=== PATIENT | female | born 1950 | race Caucasian/White ===

== ENCOUNTER 2019-08-17 10:03 | Outpatient (CLI) | payer MEDICARE, BC, SELFPAY ==
--- NOTE | ~2019-08-17 | XR_ITS ---
EXAMINATION: XR lumbar spine 2-3V DATE: 08/17/2019 10:27 INDICATION: Lumbar radiculopathy TECHNIQUE: Anteroposterior and lateral views of the lumbar spine, and cone-down lateral view of the l umbosacral junction were obtained. COMPARISON: 05/23/2017 FINDINGS: Bone alignment is normal. There is a chronic mild anterior compression fracture of L2. A tr ansitional S1 segment is again noted. There is severe loss of intervertebral disc space height throug hout the lumbar spine which is unchanged. Advanced facet osteoarthritis is noted in the lower lumbar spine. Small degenerative osteophytes project from the anterior endplates of multiple vertebral blaise s. There are 14 degrees of lumbar levoscoliosis. The bowel gas pattern is normal. Calcified atheroscl erosis is noted. IMPRESSION: 1. Severe lumbar spondylosis without acute findings or significant interval change. Reviewed, dictated and finalized at location A. IMPRESSION: 1. Severe lumbar spondylosis without acute findings or significant interval ivonne nge.
== END 2019-08-17 10:04 | disposition home or self-care (01) ==
PROVIDERS: PCP Internal Medicine; Visit Provider Pain Medicine Interventional Pain Medicine
DX: G89.4 Chronic pain syndrome (principal); M47.26 Other spondylosis with radiculopathy, lumbar region
CPT/HCPCS: 72100

== ENCOUNTER 2020-06-16 02:44 | Emergency (ER) | payer MEDICARE, BC, SELFPAY ==
--- NOTE | ~2020-06-16 | CT_ITS ---
EXAMINATION: CT abdomen pelvis wo con EXAM DATE: 06/16/2020 03:32 INDICATION: Left groin pain. TECHNIQUE: Spiral CT of the abdomen and pelvis was performed without contrast. Axial, coronal and s agittal images of the abdomen and pelvis were reviewed. The dose-length product (DLP) for this exami nation was 661.39 mGy-cm. The exposure was tailored according to patient size (auto mA exposure cont rol), and iterative reconstruction (ASIR) was used as additional dose reduction technique. There is no prior study for comparison. FINDINGS: The liver, spleen, adrenal glands and pancreas are unremarkable. Gallbladder is unremarkab le. No biliary obstruction. There is no nephrolithiasis or hydronephrosis. There is left-sided extr arenal pelvis. The uterus is not identified and has likely been surgically resected. The bladder is unremarkable. There is no retroperitoneal or pelvic lymphadenopathy. There is mild scattered kathy riosclerotic disease. The appendix is normal. There is mild sigmoid colonic diverticulosis. There is no adjacent inflamma tory change to suggest diverticulitis. The stomach and small bowel are unremarkable. No free intra peritoneal gas. The heart is normal in size. There are no pericardial or pleural effusions. The l roger bases are unremarkable. Lumbar spondylosis with moderate to severe disc disease L1-L5.. No osteo blastic disease. The inguinal canals are unremarkable. IMPRESSION: 1. No acute findings. 2. Mild sigmoid diverticulosis. Reviewed, dictated and finalized at location A.
--- NOTE | 2020-06-16 02:56 | PC.NURSE ---
Pt presents to ED with complaints of left leg and left groin pain. Pt denies fall and injury at time of pain onset. Pt states she was diagnosed with UTI last week and prescribed ABTs. Pt states pain is also in left lower back. Pt grimacing in pain and states that she is having spasms in left groin that is causing pain down left leg. Pt denies kidney stones and kidney infection, nausea, emesis and diarrhea. Pt was able to drive herself into ED as she lives alone. Pt resting on cart and is restless due to pain. Vitals stable and call button and personal items within reach.
[2020-06-16 02:57] VITALS: BP 177/96; PULSE 83; RESP 18; TEMP 36.8; O2SAT 100
[2020-06-16] MEDS: ONDANSETRON INJ 4 MG/2 ML VIAL IV PUSH (03:08)
[2020-06-16] MEDS: SODIUM CHLORIDE 0.9% IV 1,000 ML 999 ML IV CONT (03:08)
[2020-06-16] MEDS: HYDROmorphone HCL INJ (*CRX) 1 MG/ML SYR IV PUSH ×2 (03:09→03:43)
--- NOTE | 2020-06-16 03:15 | PC.NURSE ---
Pt assisted on and off of bedpan and was unable to urinate. Pt advised of the need for urine and was offered a straight cath. Pt ok with straight cath.
[2020-06-16 03:27] LABS: Basophils Percent Auto 0.3 % (0.2-1.2); Eosinophils Absolute Auto 0.1 K/mm3 (0-0.3); Eosinophils Percent Auto 1.1 % (0-4.4); Hematocrit 40.6 % (37.0-47.0); Hemoglobin 13.5 g/dL (12.0-15.0); Immature Granulocyte Absolute 0.03 K/mm3 (0.00-0.031); Immature Granulocyte Percent A 0.3 % (0-0.5); Lymphocytes Absolute Auto 1.62 K/mm3 (0.9-3.2); Lymphocytes Percent Auto 13.9 % (18.3-44.2); Mean Corpuscular HGB Conc 33.3 g/dl (32-36); Mean Corpuscular Hemoglobin 32.5 pg (26-34); Mean Corpuscular Volume 97.6 fl (80-100); Mean Platelet Volume 10.9 fl (7.4-10.4); Monocytes Absolute Auto 1.1 K/mm3 (0.1-0.6); Monocytes Percent Auto 9.1 % (2.6-8.5); Neutrophils Absolute Auto 8.8 K/mm3 (1.3-6.7); Neutrophils Percent Auto 75.3 % (45.5-73.1); Platelet Count Result 221 k/mm3 (150-375); Red Blood Count 4.16 M/mm3 (4.2-5.4); White Blood Count 11.6 K/mm3 (4.5-10.0)
--- NOTE | 2020-06-16 03:36 | PC.NURSE ---
Pt straight cath'd and tolerated procedure well. Specimen collected and sent to lab. Pt now resting on cart in its lowest position with call button and personal items within reach. cartographic technician presented to bedside to transport pt to CT.
[2020-06-16 03:38] LABS: Alanine Aminotransferase 17 U/L (4-35); Alkaline Phosphatase 78 U/L (38-126); Anion Gap 6 mmol/L (8-16); Aspartate Amino Transferase 26 U/L (14-36); Bilirubin,Total 0.4 mg/dL (0.2-1.3); Blood Urea Nitrogen 19 mg/dL (7-17); Calcium 9.1 mg/dL (8.4-10.2); Carbon Dioxide 29 mmol/L (22-30); Chloride 101 mmol/L (98-107); Estimated Glomerular Filt Rate > 60; Glucose 126 mg/dL (65-105); Lipase 102 U/L (23-300); Potassium 3.6 mmol/L (3.4-5.0); Sodium 136 mmol/L (137-145)
[2020-06-16 03:39] LABS: Lactic Acid Reflex 1.4 mmol/L (0.7-2.1)
--- NOTE | 2020-06-16 03:46 | PC.NURSE ---
Pt returned from radiology and is now resting on cart in its lowest position. Pt states pain has not subsided since administration of fentanyl. EDMD notified and states he will place orders for pain.
--- NOTE | 2020-06-16 04:08 | PC.NURSE ---
Pt continues to complain of no pain relief. EDMD notified and states will place order for more pain medication.
[2020-06-16] MEDS: KETOROLAC 30 MG/ML VIAL (*BKC) 15 MG IV PUSH (04:14)
[2020-06-16 04:22] LABS: Add Urine Microscopic? YES; Appearance Urine Cloudy (Clear); Bilirubin Urine Negative (Negative); Blood Urine Negative (Negative); Color Urine Yellow (Yellow); Glucose Urine UA Negative (Negative); Ketones Urine Negative (Negative); Leukocyte Esterase Ur Negative LEU/UL (Negative); Mucus Urine Rare /lpf; Nitrate Urine Negative (Negative); Protein Urine Negative (Negative); RBC Urine 0-2 /hpf (0-2); Specific Grav Ur 1.016 (1.001-1.035); Urobilinogen Urine Negative mg/dL (<2.0); WBC Urine 0-3 /hpf
--- NOTE | 2020-06-16 04:23 | ED.GENADULT ---
HPI - General Adult General Chief complaint: Extremity Injury, Lower Stated complaint: left hip/groin pain Time Seen by Provider: 06/16/20 02:52 History of Present Illness HPI narrative: Patient is a 69-year-old female presents to emergency department with chief complaint of the left inguinal pain. Patient reports that she has been treated for a urinary tract infection this week and started having severe pain in her left inguinal area patient states he is unable to get comfortable in any position reports that is not worse with palpation Related Data Home Medications Medication Instructions Recorded Confirmed calcium carbonate-vitamin D3 600 cap PO 08/31/19 mg calcium-200 unit capsule auaqmjtcevtx-thickyam-njply acid cap PO 08/31/19 400 mcg-vitamin K 80 mcg capsule nabumetone 750 mg tablet 750 mg PO BID 08/31/19 ramipril 10 mg capsule 10 mg PO DAILY 08/31/19 simvastatin 40 mg tablet 40 mg PO DAILY 08/31/19 Allergies Allergy/AdvReac Type Severity Reaction Status Date / Time Penicillins Allergy Unknown unknow Verified 08/31/19 13:29 Review of Systems Review of Systems: Narrative: A 10 system review of systems was completed on the patient and is negative except for what is stated in the HPI. Nursing and ancillary documentation was reviewed. [facility] Past Medical History Medical History (Updated 06/16/20 @ 05:07 by Rl Telles MD) Breast cancer History of vaginal delivery x 2 Surgical History Surgical History History of right mastectomy History of tubal ligation History of vaginal hysterectomy Social History Social History Smoking status: Never smoker Alcohol intake: current Exam Narrative: Exam Narrative: GENERAL: Well-appearing, well-nourished, and in no acute distress. HEAD: Normocephalic, atraumatic. EYES: PERRLA and EOMI. ENT: Nares clear, no rhinorrhea or epistaxis. Mucous membranes moist. NECK: Supple. CHEST: Clear to auscultation. No respiratory distress. HEART: Regular rate and rhythm. No murmur heard. Normal peripheral pulses. ABDOMEN: Soft, nontender, nondistended, normal active bowel sounds. EXTREMITIES: Normal range of motion. No edema. SKIN: Warm, dry, no rash. NEURO: No focal deficits. Alert and oriented x3. PSYCH: Normal mood and affect. Course Course Emergency Course: CT scan showed possible distal colitis versus artifact Vital Signs Vital signs: Vital Signs Temperature 36.8 C 06/16/20 02:57 Pulse Rate 83 06/16/20 02:57 Respiratory Rate 18 06/16/20 02:57 Blood Pressure 177/96 H 06/16/20 02:57 Pulse Oximetry 100 06/16/20 02:57 Temperature 36.8 C 06/16/20 02:57 Pulse Rate 106 H 06/16/20 04:33 Respiratory Rate 20 06/16/20 04:33 Blood Pressure 151/80 H 06/16/20 04:33 Pulse Oximetry 98 06/16/20 04:33 Medical Decision Making Vital Signs Vital Signs: Vital Signs Temperature 36.8 C 06/16/20 02:57 Pulse Rate 83 06/16/20 02:57 Respiratory Rate 18 06/16/20 02:57 Blood Pressure 177/96 H 06/16/20 02:57 Pulse Oximetry 100 06/16/20 02:57 Temperature 36.8 C 06/16/20 02:57 Pulse Rate 106 H 06/16/20 04:33 Respiratory Rate 20 06/16/20 04:33 Blood Pressure 151/80 H 06/16/20 04:33 Pulse Oximetry 98 06/16/20 04:33 Lab Data Result diagrams: 06/16/20 03:15 06/16/20 03:15 Labs: Lab Results 06/16/20 06/16/20 06/16/20 Range/Units 03:15 03:15 03:20 WBC 11.6 H (4.5-10.0) K/mm3 RBC 4.16 L (4.2-5.4) M/mm3 Hgb 13.5 (12.0-15.0) g/dL Hct 40.6 (37.0-47.0) % MCV 97.6 (80-100) fl MCH 32.5 (26-34) pg MCHC 33.3 (32-36) g/dl RDW 12.0 (11.5-14.5) % Plt Count 221 (150-375) k/mm3 MPV 10.9 H (7.4-10.4) fl Immature Gran % (Auto) 0.3 (0-0.5) % Neut % (Auto) 75.3 H (45.5-73.1) % Lymph % (Aut
--- NOTE | 2020-06-16 04:25 | PC.NURSE ---
Pt states pain has improved and is now rated 5/10 at this time. Pt states that groin spasms persists and orders muscle relaxer. Pt resting on cart. Vitals remains stable and pt resting on cart with call button and personal items within reach.
--- NOTE | 2020-06-16 04:28 | PC.NURSE ---
EDMD at bedside to update pt on poc. All questions and concerns addressed. Pt with call button and personal items within reach. Advised to press call button for assistance.
[2020-06-16 04:33] VITALS: BP 151/80; PULSE 106; RESP 20; O2SAT 98
[2020-06-16] MEDS: CYCLOBENZAPRINE HCL 10 MG TABLET PO (04:34)
--- NOTE | 2020-06-16 05:19 | PC.NURSE ---
Pt resting on cart and states that pain remains 5/10 and that spasms have decreased. EDMD notified. Pt resting on cart with stable vitals. No complaints or concerns voiced at this time. Advised to press call button for assistance.
[2020-06-16 05:27] VITALS: BP 153/84; PULSE 108; RESP 18; TEMP 36.9; O2SAT 100
== END 2020-06-16 05:29 | disposition home or self-care (01) ==
PROVIDERS: Emergency Provider Emergency Medicine; PCP Internal Medicine
DX: R10.32 Left lower quadrant pain (principal); M25.552 Pain in left hip; N39.0 Urinary tract infection, site not specified; Z85.3 Personal history of malignant neoplasm of breast; Z90.11 Acquired absence of right breast and nipple
CPT/HCPCS: 36415; 74176; 80053; 81001; 83605; 83690; 85025; 96361; 96374; 96375; 96376; 99284; A9270; J1170; J1885; J2405; J7030

== ENCOUNTER 2021-07-06 00:33 | Day surgery (SDC) | payer MEDICARE, BC, SELFPAY ==
[2021-06-29 09:50] VITALS: BMI 28.9
--- NOTE | 2021-07-05 14:23 | PM.HPGS ---
History of Present Illness History of Present Illness Consent: Risks, benefits, and alternatives have been discussed and questions answered. Patient agrees to proceed with procedure. Chief complaint: positive cologuard Narrative: Barbara Cosby is a 70 year old female referred for colon cancer screening. A Cologuard test that she recently performed was positive Review of Systems Review of Systems: All systems reviewed & are unremarkable except as noted in HPI and below PMFSH Past Medical History Medical History Arthritis Breast cancer Chronic pain syndrome High cholesterol History of vaginal delivery x 2 Hyperlipidemia Hypertension Surgical History Surgical History H/O foot surgery History of right mastectomy History of tubal ligation History of vaginal hysterectomy Family History Family History Mother Heart defect Social History Social History Smoking status: Never smoker Alcohol intake: current Drinks per week: 3 Substance use: never Substance use type: does not use Living arrangements: alone Additional living arrangements comments: brother lives next door Spiritual care concerns: No Meds Home Medications and Allergies Home Medications Medication Instructions Recorded Confirmed Type calcium carbonate 600 mg-vitamin 600 cap PO DAILY 08/31/19 07/06/21 History D3 5 mcg (200 unit) capsule tnyijwupktnr-cuwlmroo-rngnn acid 400 cap PO DAILY 08/31/19 07/06/21 History 400 mcg-vitamin K 80 mcg capsule ramipril 10 mg capsule 10 mg PO DAILY 08/31/19 07/06/21 History simvastatin 40 mg tablet 40 mg PO DAILY 08/31/19 07/06/21 History venlafaxine 75 mg capsule,extended 75 mg PO BID #180 cap 09/07/20 07/06/21 Rx release 24 hr hydrocodone-acetaminophen 5 - 325 mg PO PRN PRN 06/29/21 07/06/21 History methocarbamol 750 mg pe PO DAILY 06/29/21 07/06/21 History Allergies Allergy/AdvReac Type Severity Reaction Status Date / Time Penicillins Allergy Unknown unknow Verified 07/06/21 10:10 Exam Resp: Auscultation: clear to auscultation bilaterally Cardio: Rate: regular rate Rhythm: regular rhythm GI: GI Palp: Yes Soft to palpation and No Tenderness to palpation present (GI) Assessment and Plan Assessment and plan (1) Colon cancer screening: Code(s): Z12.11 - Encounter for screening for malignant neoplasm of colon Status: Acute Assessment and Plan: Colonoscopy with possible biopsy or polypectomy or cautery or injection of substances.
[2021-07-06 10:12] VITALS: BP 175/99; PULSE 90; RESP 18; TEMP 36.4; O2SAT 99
[2021-07-06] MEDS: LACTATED RINGERS 1,000 ML 150 ML IV CONT (10:24)
--- NOTE | 2021-07-06 10:35 | P.PNAN_ITS ---
Anes - Initial Pre Proc Eval Procedure: Operation Date: 07/06/21 11:15 Proposed Procedures p Colonoscopy - Flavio Alicia MD Date/Time: 07/06/21 10:35 Surgeon: Flavio Alicia MD Pre Op Diagnosis: positive cologuard Patient Data Age: 70 Gender: F Height: 1.55 m Weight: 67.7 kg Last Vital Signs Temp 36.4 C 07/06/21 10:12 Pulse 90 07/06/21 10:12 Resp 18 07/06/21 10:12 BP 175/99 H 07/06/21 10:12 Pulse Ox 99 07/06/21 10:12 Allergies Allergy/AdvReac Type Severity Reaction Status Date / Time Penicillins Allergy Unknown unknow Verified 07/06/21 10:10 Home Medications Medication Instructions Recorded Confirmed Type calcium carbonate 600 mg-vitamin 600 cap PO DAILY 08/31/19 07/06/21 History D3 5 mcg (200 unit) capsule nupwqpwizddv-zcpelyma-trlcd acid 400 cap PO DAILY 08/31/19 07/06/21 History 400 mcg-vitamin K 80 mcg capsule ramipril 10 mg capsule 10 mg PO DAILY 08/31/19 07/06/21 History simvastatin 40 mg tablet 40 mg PO DAILY 08/31/19 07/06/21 History venlafaxine 75 mg capsule,extended 75 mg PO BID #180 cap 09/07/20 07/06/21 Rx release 24 hr hydrocodone-acetaminophen 5 - 325 mg PO PRN PRN 06/29/21 07/06/21 History methocarbamol 750 mg pe PO DAILY 06/29/21 07/06/21 History Patient hx anesthesia problems: none Family hx anesthesia problems: none Results Review: All pre-operative results and documents have been reviewed as part of the pre-operative evaluation. [facility] Past Medical History Medical History Arthritis Breast cancer Chronic pain syndrome High cholesterol History of vaginal delivery x 2 Hyperlipidemia Hypertension Surgical History Surgical History H/O foot surgery History of right mastectomy History of tubal ligation History of vaginal hysterectomy Family History Family History Mother Heart defect Social History Social History Smoking status: Never smoker Alcohol intake: current Drinks per week: 3 Substance use: never Substance use type: does not use Living arrangements: alone Additional living arrangements comments: brother lives next door Spiritual care concerns: No Anes - Eval Final PreProcedure Day of Procedure 07/06/21 10:35 Patient weight: overweight Heart: regular rate and rhythm Lungs: clear to auscultation Airway: Mallampati scale class IV Neurological: alert and oriented Last oral intake: >/= 8 hours ASA classification: III Emergent: no Anesthetic plan: proceed Anesthesia type and monitoring: general GIVS and standard monitoring Results Review: All pre-operative results and documents have been reviewed as part of the pre-operative evaluation. Informed Consent: The patient's anesthetic plan and its attendant risks and benefits were discussed with the patient/family/POA. Questions were solicited a nd answers provided to the satisfaction of the patient/family/POA.
[2021-07-06 11:17] VITALS: BP 132/87; PULSE 74; RESP 22; O2SAT 94
[2021-07-06 11:27] VITALS: BP 162/103; PULSE 72; RESP 22; O2SAT 98
[2021-07-06 11:37] VITALS: BP 175/109; PULSE 72; RESP 17; O2SAT 98
== END 2021-07-06 11:47 | disposition home or self-care (01) ==
PROVIDERS: PCP Family Medicine; Visit Provider Internal Medicine Gastroenterology
PROC: 0DJD8ZZ Inspection of Lower Intestinal Tract, Via Natural or Artificial Opening Endoscopic (ICD-10-PCS; CPT 45378; principal; 2021-07-06 11:15)
DX: R19.5 Other fecal abnormalities (principal); K57.30 Diverticulosis of large intestine without perforation or abscess without bleeding; K64.8 Other hemorrhoids; I10 Essential (primary) hypertension; E78.5 Hyperlipidemia, unspecified; E78.00 Pure hypercholesterolemia, unspecified; M19.90 Unspecified osteoarthritis, unspecified site; G89.29 Other chronic pain; Z85.3 Personal history of malignant neoplasm of breast
CPT/HCPCS: 45378; J2704; J7120

== ENCOUNTER 2023-05-22 12:40 | Outpatient (CLI) | payer MEDICARE, BC, SELFPAY ==
--- NOTE | ~2023-05-22 | DEXA_ITS ---
Bone Density Report Name: SOULEYMANE GUADALUPE Age: 72 Sex: Female Ethnicity: White Date of : 1950 Indication: postmenopausal; screening for osteoporosis; cancer; hysterectomy; rheumatoid arthritis; Referring Provider: CASTILLO, GUSTAVO Johnston Study: Bone densitometry was performed. Exam Date: May 22, 2023 Accession number: [id number] Bone Density: Region BMD T-score Z-score Classification AP Spine(L2, L3, L4) 0.978 -0.9 1.4 Normal Femoral Neck (Left) 0.596 -2.3 -0.4 Osteopenia Total Hip (Left) 0.692 -2.1 -0.5 Osteopenia Femoral Neck (Right) 0.609 -2.2 -0.3 Osteopenia Total Hip (Right) 0.662 -2.3 -0.7 Osteopenia Femoral Neck Mean 0.602 -2.2 -0.3 Osteopenia Total Hip Mean 0.677 -2.2 -0.6 Osteopenia World Health Organization criteria for BMD impression classify patients as: Normal (T-score at or above -1.0), Osteopenia (T-score between -1.0 and -2.5), or Osteoporosis (T-score at or below -2.5). 10-year Fracture Risk(1): Major Osteoporotic Fracture 17% Hip Fracture 4.4% Reported Risk Factors: [place] (), Neck BMD=0.596, BMI=28.3, rheumatoid arthritis (1) FRAX(R) Version 3.08. Fracture probability calculated for an untreated patient. Fracture probability may be lower if the patient has received treatment. Clinical Information Provided by Patient: Has rheumatoid arthritis Has used the following medications: Calcium Has the following medical conditions: Cancer, Hysterectomy Menopause Age: 33 No regular weight bearing exercise Drinks caffeinated beverages Onset of menses at age 15 Number of children 2 Impression: The patient has low bone mass, based on the Right Total Hip T-score. Discussion: BONE DENSITY IS LOW AT ONE OR MORE SKELETAL SITES. This patient's lowest T-score is low at one or more skeletal sites. It meets the World Health Organization's (WHO) criteria for ?low bone mass? (T-score between -1.0 and -2.5). The patient's 10-year risk of fracture as calculated by FRAX is less than the threshold where pharmacological therapy is recommended by the National Osteoporosis Foundation (NOF). However, all treatment decisions require clinical judgment and consideration of individual patient factors, including patient preferences, comorbidities, previous drug use, risk factors not captured in the FRAX model (e.g., frailty, falls, vitamin D deficiency, increased bone turnover, interval significant decline in bone density) and possible under or overestimation of fracture risk by FRAX. The patient should follow a healthful lifestyle (good nutrition with adequate calcium and vitamin D, and appropriate weight-bearing exercise). Follow-Up: Consider repeating this study in 2 to 3 years to reassess this patient's status, or sooner if there is some new clinical indication. Reported by: Dr. Price Araujo on 05/22/2023 1:33:00 PM.
--- NOTE | ~2023-05-22 | MM_ITS ---
EXAMINATION: MM screening camilo LT w aisha HISTORY: Screening TECHNIQUE: Craniocaudal and mediolateral oblique 3-D tomosynthesis images were obtained and synthetic 2-D images were generated. CAD analysis was submitted and interpreted. COMPARISON: No prior mammogram is available for comparison at this institution. BREAST PARENCHYMAL COMPOSITION: Dense: The breasts are heterogeneously dense, which may obscure small masses FINDINGS: There are focal nodular densities obscured by dense fibroglandular tissue in the outer aspe ct of the left breast, best seen on CC view. There are benign-appearing left breast calcifications. IMPRESSION: 1. Focal nodular asymmetries left breast. 2. Additional mammographic views and possible breast ultrasound are recommended. BI-RADS Category 0: Incomplete: Needs additional imaging evaluation. Reviewed, dictated and finalized at location A. IMPRESSION: 1. Focal nodular asymmetries left breast. 2. Additional mammographic views and possible breast ultrasound are recommended . BI-RADS Category 0: Incomplete: Needs additional imaging evaluation.
== END 2023-05-22 12:41 | disposition home or self-care (01) ==
LOC: CHSIMG 12:43
PROVIDERS: PCP Family Medicine; Visit Provider Registered Nurse
DX: Z12.31 Encounter for screening mammogram for malignant neoplasm of breast (principal); Z78.0 Asymptomatic menopausal state; M85.89 Other specified disorders of bone density and structure, multiple sites; R92.8 Other abnormal and inconclusive findings on diagnostic imaging of breast
CPT/HCPCS: 77063; 77067; 77080

== ENCOUNTER 2023-06-07 08:40 | Outpatient (CLI) | payer MEDICARE, BC, SELFPAY ==
--- NOTE | ~2023-06-07 | MMUS_ITS ---
EXAMINATION: MM diagnostic camilo LT w aisha, US breast LT limited HISTORY: Follow-up left breast asymmetry TECHNIQUE: Additional 3-D tomosynthesis images of the left breast were performed and synthetic 2-D im ages were generated. CAD analysis was submitted and interpreted. High resolution Limited left breast ultrasound was performed. COMPARISON: 05/22/2023 BREAST PARENCHYMAL COMPOSITION: Not dense: There are scattered areas of fibroglandular density. FINDINGS: MAMMOGRAPHIC FINDINGS: There are no suspicious masses, calcifications or architectural distortion in the left breast to sugg est malignancy. There are benign calcifications in the left breast. ULTRASOUND: Limited left breast ultrasound: At 3:00, 2 cm from the nipple, there is a cluster of microcysts measu ring 5 mm. At 2:00, 5 cm from the nipple there is a 4 mm cyst. No suspicious masses to suggest malign inocente. IMPRESSION: 1. No evidence for malignancy in the left breast. 2. Routine yearly screening mammogram and regular clinical breast examination are recommended. BI-RADS Category 2: Benign finding(s). Reviewed, dictated and finalized at location A. IMPRESSION: 1. No evidence for malignancy in the left breast. 2. Routine yearly screening mammogram and regular clinical breast examination a re recommended. BI-RADS Category 2: Benign finding(s).
== END 2023-06-07 08:41 | disposition home or self-care (01) ==
LOC: CHSIMG 08:50
PROVIDERS: PCP Family Medicine; Visit Provider Obstetrics & Gynecology
DX: R92.8 Other abnormal and inconclusive findings on diagnostic imaging of breast (principal); Z85.3 Personal history of malignant neoplasm of breast
CPT/HCPCS: 76642; 77061; 77065; G0279

== ENCOUNTER 2024-01-20 13:29 | Outpatient (CLI) | payer MEDICARE, BC, SELFPAY ==
--- NOTE | ~2024-01-20 | XR_ITS ---
EXAMINATION: XR hip BI 2V w AP pelvis DATE: 01/20/2024 14:00 INDICATION: Chronic low back pain radiating to the right hip. TECHNIQUE: An anteroposterior view of the pelvis and 2 views of each hip were obtained. COMPARISON: None. FINDINGS: There is lumbar levocurvature and severe spondylosis. No fracture. There is mild osteoarthr itis of the hips. Osteitis pubis is noted. IMPRESSION: 1. Mild osteoarthritis of the hips. Reviewed, dictated and finalized at location A. LINING [employer]STER
--- NOTE | ~2024-01-20 | XR_ITS ---
EXAMINATION: XR lumbar spine 2-3V DATE: 01/20/2024 14:00 INDICATION: Chronic low back pain. TECHNIQUE: 3 views of lumbar spine were obtained. COMPARISON: Lumbar spine radiograph 08/17/2019 FINDINGS: There is 12 degrees levoscoliosis of lumbar spine. There is 3 mm retrolisthesis of L2 on L3 , L3 on L4, L4 on L5, and L5 on S1. S1 is a transitional segment. There is mild chronic anterior wedg ing of L2 vertebral body. There is moderately decreased disc height at L1-L2 and severely decreased d isc height from L2-L3 through L5-S1. There is multilevel severe facet joint osteoarthritis. IMPRESSION: 1. Severe lumbar spondylosis with interval worsening at L1-L2. 2. Lumbar levoscoliosis. Reviewed, dictated and finalized at location A. [employer] MARKETING ASSISTANT
== END 2024-01-20 13:30 | disposition home or self-care (01) ==
PROVIDERS: PCP Physician Assistant; Visit Provider Pain Medicine Interventional Pain Medicine
DX: M54.17 Radiculopathy, lumbosacral region (principal); M25.559 Pain in unspecified hip; M43.06 Spondylolysis, lumbar region; M41.86 Other forms of scoliosis, lumbar region; M16.0 Bilateral primary osteoarthritis of hip
CPT/HCPCS: 72100; 73521